=== PATIENT | male | born 1965 | race Caucasian/White ===

== ENCOUNTER 2020-02-15 20:06 | Observation (INO) | payer OTHER, SELFPAY ==
--- NOTE | ~2020-02-15 | XR_ITS ---
XR abdomen/kub 1V 02/15/2020 20:57 Indication: Right flank pain Procedure: KUB Comparison: 02/20/2015 Findings: There is a 1.5 cm right UPJ stone, measured longitudinally. There are multiple small left r enal stones. Bowel gas pattern is nonobstructive. No acute osseous abnormality. There are multiple pe lvic phleboliths. Impression: 1: Right UPJ stone measuring 1.5 cm craniocaudal. 2: Left nephrolithiasis. Right renal stones seen on CT examination are obscured by bowel content. Reviewed, dictated and finalized at location A. Impression: 1: Right UPJ stone measuring 1.5 cm craniocaudal. 2: Left nephrolithiasis. Right renal stones seen on CT examination are obscured by bowel content.
--- NOTE | ~2020-02-15 | XR_ITS ---
EXAMINATION: XR retrograde pyelo w/stent RT DATE: 02/16/2020 11:04 INDICATION: Right internal ureteral stent placement TECHNIQUE: Fluoroscopic images from a right internal ureteral stent placement are submitted for lawrence olsen 39 seconds of fluoroscopy time. 30 fluoroscopic images FINDINGS: There is a right double-J internal ureteral stent projecting in expected position, with proximal [place] loop at the level of the renal pelvis and distal loop in the pelvis within the bladder lumen. IMPRESSION: 1. Right internal ureteral stent placement. Please refer to real-time procedural findings for bryan mon. Reviewed, dictated and finalized at location A. IMPRESSION: 1. Right internal ureteral stent placement. Please refer to real-time procedu ral findings for details.
--- NOTE | ~2020-02-15 | CT_ITS ---
EXAMINATION: CT abdomen pelvis wo con DATE: 02/15/2020 20:51 INDICATION: Right flank pain. History of kidney stones. TECHNIQUE: Computed tomography (CT) of the abdomen and pelvis was performed without intravenous contr ast. The dose-length product was 262.17 mGy-cm. Automated exposure control and iterative reconstructi on technique were employed. COMPARISON: CT dated 03/19/2019 FINDINGS: Lung bases are unremarkable. No pleural or pericardial effusion. Heart size is normal. The liver, spleen, pancreas, adrenal glands are unremarkable. There is a 9 mm right UPJ stone with mo derate hydronephrosis. There are multiple nonobstructing bilateral renal stones, approximately 6 on b oth sides. There is moderate right perinephric edema. No left hydronephrosis. Nonobstructive bowel ga s pattern. No evidence for hernia. No significant vascular abnormality. No lymphadenopathy. No free a ir or free fluid. Mild lumbar spondylosis. IMPRESSION: 1. 9 mm obstructing right UPJ stone with moderate hydronephrosis and perinephric edema. 2: Nonobstructing bilateral nephrolithiasis. Reviewed, dictated and finalized at location A. IMPRESSION: 1. 9 mm obstructing right UPJ stone with moderate hydronephrosis and perinephri c edema. 2: Nonobstructing bilateral nephrolithiasis.
[2020-02-15 20:10] VITALS: BP 151/92; PULSE 77; RESP 24; TEMP 36.4; O2SAT 99
[2020-02-15 20:26] LABS: Basophils Percent Auto 0.3 % (0.2-1.2); Eosinophils Absolute Auto 0.1 K/mm3 (0-0.3); Eosinophils Percent Auto 0.7 % (0-4.4); Hematocrit 41.9 % (42.0-52.0); Hemoglobin 14.5 g/dL (14.0-18.0); Immature Granulocyte Absolute 0.03 K/mm3 (0.00-0.031); Immature Granulocyte Percent A 0.3 % (0-0.5); Lymphocytes Absolute Auto 1.91 K/mm3 (0.9-3.2); Lymphocytes Percent Auto 16.7 % (18.3-44.2); Mean Corpuscular HGB Conc 34.6 g/dl (32-36); Mean Corpuscular Hemoglobin 31.8 pg (26-34); Mean Corpuscular Volume 91.9 fl (80-100); Mean Platelet Volume 10.1 fl (7.4-10.4); Monocytes Absolute Auto 1.1 K/mm3 (0.1-0.6); Monocytes Percent Auto 9.2 % (2.6-8.5); Neutrophils Absolute Auto 8.4 K/mm3 (1.3-6.7); Neutrophils Percent Auto 72.8 % (45.5-73.1); Platelet Count Result 238 k/mm3 (150-375); Red Blood Count 4.56 M/mm3 (4.6-6.20); Red Cell Distribution Width 12.4 % (11.5-14.5); White Blood Count 11.5 K/mm3 (4.5-10.0)
--- NOTE | 2020-02-15 20:35 | ED.ABDPAIN ---
HPI - Abdominal Pain General Chief Complaint: Urogenital-Male <Jesús Boss PA-C - Last Filed: 02/15/20 21:49> Stated Complaint: right flank, frequents kidney stones. <Jesús Boss PA-C - Last Filed: 02/15/20 21:49> Time Seen by Provider: 02/15/20 20:24 <Jesús Boss PA-C - Last Filed: 02/15/20 21:49> Source: patient <Jesús Boss PA-C - Last Filed: 02/15/20 21:49> Mode of arrival: ambulatory <Jesús Boss PA-C - Last Filed: 02/15/20 21:49> Limitations: no limitations <Jesús Boss PA-C - Last Filed: 02/15/20 21:49> History of Present Illness HPI narrative: Patient is a 54-year-old male who presents to emergency department for evaluation of right flank pain that began today has been having pain off and on for the last 2 weeks patient notes history of frequent urolithiasis patient notes nausea but denies emesis patient denies any current hematuria patient is followed by urology and has not taken anything for his symptoms symptoms are constant nothing is made them better or worse <Jesús Boss PA-C - Last Filed: 02/15/20 21:49> Related Data Home Medications: Home Medications Medication Instructions Recorded Confirmed omeprazole 20 mg PO DAILY 02/15/20 02/16/20 <Jesús Boss PA-C - Last Filed: 02/15/20 21:49> Allergies/Adverse Reactions: Allergies Allergy/AdvReac Type Severity Reaction Status Date / Time No Known Allergies Allergy Verified 02/15/20 22:07 <Jesús Boss PA-C - Last Filed: 02/15/20 21:49> Review of Systems Review of Systems: All systems reviewed & are unremarkable except as noted in HPI and below <Jesús Boss PA-C - Last Filed: 02/15/20 21:49> PMFSH Past Medical History Medical History: Medical History (Updated 02/15/20 @ 21:47 by Jesús Boss PA-C) Kidney stone <Jesús Boss PA-C - Last Filed: 02/15/20 21:49> Surgical History Surgical History: Surgical History (Updated 02/15/20 @ 20:36 by Jesús Boss PA-C) H/O lithotripsy <Jesús Boss PA-C - Last Filed: 02/15/20 21:49> Family History Family History: Family History (Updated 02/15/20 @ 23:14 by Twin Askew RN) Other Unknown family medical history <Jesús Boss PA-C - Last Filed: 02/15/20 21:49> Social History Social History: Social History Smoking status: Never smoker Alcohol intake: current Substance use: never Gender identity (if verbalized by the patient): Male Sexual Orientation (if Verbalized by the Patient): Straight or Heterosexual Spiritual care concerns: No <Jesús Boss PA-C - Last Filed: 02/15/20 21:49> Exam Narrative: Exam Narrative: GENERAL: Ill-appearing, well-nourished, and in acute pain HEAD: Normocephalic, atraumatic. EYES: PERRLA and EOMI. ENT: Nares clear, no rhinorrhea or epistaxis. Mucous membranes moist. Oropharynx without tonsillar hypertrophy exudate or other lesions. NECK: Supple. No adenopathy or masses. CHEST: Clear to auscultation. No respiratory distress. No wheezes rales or rhonchi HEART: Regular rate and rhythm. No murmur heard. Normal peripheral pulses. ABDOMEN: Soft, nontender, nondistended EXTREMITIES: Normal range of motion. No edema. SKIN: Warm, dry, no rash. NEURO: No focal deficits. Alert and oriented x3. PSYCH: Normal mood and affect. <Jesús Boss PA-C - Last Filed: 02/15/20 21:49> Course Course Emergency Course: Patient given medications for pain and fluids in the emergency department will be placed in hospital with urological consult for discussion of stenting given the size of the stone. Patient was given a dose of Rocephin patient feeling better but continued to have discomfort patient without emesis <Jesús Boss PA-C - Last Filed: 02/15/20 21:49> IT SOFTWARE ENGINEER/PA Physician Supervision Attestation for Jesús Boss at 215
[2020-02-15 20:39] LABS: Blood Urea Nitrogen 23 mg/dL (9-20); Calcium 9.9 mg/dL (8.4-10.2); Carbon Dioxide 26 mmol/L (22-30); Chloride 99 mmol/L (98-107); Estimated CRCL calculation 58 ml/min; Estimated Glomerular Filt Rate 49; Glucose 116 mg/dL (75-110); Sodium 136 mmol/L (137-145)
[2020-02-15] MEDS: ONDANSETRON INJ 4 MG/2 ML VIAL IV PUSH (20:43)
[2020-02-15] MEDS: MORPHINE SULFATE 4 MG/ML INJ IV PUSH ×2 (20:44→22:05)
[2020-02-15 20:52] LABS: Add Urine Microscopic? YES; Appearance Urine Clear (Clear); Bacteria Urine Trace /hpf; Bilirubin Urine Negative (Negative); Blood Urine 2+ (Negative); Color Urine Colorless (Yellow); Glucose Urine UA Negative (Negative); Ketones Urine Negative (Negative); Leukocyte Esterase Ur Negative LEU/UL (Negative); Mucus Urine Rare /lpf; Nitrate Urine Negative (Negative); Protein Urine Negative (Negative); RBC Urine 51-75 /hpf (0-2); Specific Grav Ur 1.011 (1.001-1.035); Urobilinogen Urine Negative mg/dL (<2.0); WBC Urine 0-3 /hpf
[2020-02-15] MEDS: SODIUM CHLORIDE 0.9% IV 1,000 ML 999 ML IV CONT ×2 (21:25→21:34)
[2020-02-15 22:06] VITALS: BP 148/90; PULSE 80; RESP 18; O2SAT 98
[2020-02-15 23:00] VITALS: BP 137/87; PULSE 72; RESP 16; TEMP 36.4; O2SAT 97; BMI 26.4
[2020-02-15] MEDS: LACTATED RINGERS 1,000 ML 125 ML IV CONT (23:07)
--- NOTE | 2020-02-15 23:11 | ADMGEN ---
This patient, Salvatore Kennedy, was admitted to [facility] Surg Room 315-01. Patient/family oriented to hospital policies and general routines including ID bracelet, bed and alarms, visiting hours, pain management, procedures, bathroom and other care routines, personal items, smoking policy, room service/diet, and visiting hours. Valuables list has been completed. Information on how to activate the Rapid Response Team has been discussed. Patient/Family are encouraged to report perceived risks to care and to ask questions if they do not understand what they are told or what they should do.
[2020-02-16] MEDS: MORPHINE SULFATE 4 MG/ML INJ IV PUSH ×3 (00:42→08:37)
[2020-02-16 06:00] VITALS: BP 127/71; PULSE 56; RESP 20; TEMP 36.4; O2SAT 97
[2020-02-16] MEDS: LACTATED RINGERS 1,000 ML 125 ML IV CONT (06:24)
[2020-02-16 06:35] LABS: Basophils Percent Auto 0.3 % (0.2-1.2); Eosinophils Absolute Auto 0.1 K/mm3 (0-0.3); Eosinophils Percent Auto 0.9 % (0-4.4); Hematocrit 39.9 % (42.0-52.0); Hemoglobin 13.3 g/dL (14.0-18.0); Immature Granulocyte Absolute 0.03 K/mm3 (0.00-0.031); Immature Granulocyte Percent A 0.3 % (0-0.5); Lymphocytes Absolute Auto 1.98 K/mm3 (0.9-3.2); Lymphocytes Percent Auto 20.4 % (18.3-44.2); Mean Corpuscular HGB Conc 33.3 g/dl (32-36); Mean Corpuscular Hemoglobin 31.4 pg (26-34); Mean Corpuscular Volume 94.3 fl (80-100); Mean Platelet Volume 10.4 fl (7.4-10.4); Monocytes Absolute Auto 1.1 K/mm3 (0.1-0.6); Monocytes Percent Auto 11.3 % (2.6-8.5); Neutrophils Absolute Auto 6.5 K/mm3 (1.3-6.7); Neutrophils Percent Auto 66.8 % (45.5-73.1); Platelet Count Result 217 k/mm3 (150-375); Red Blood Count 4.23 M/mm3 (4.6-6.20); Red Cell Distribution Width 12.5 % (11.5-14.5); White Blood Count 9.7 K/mm3 (4.5-10.0)
[2020-02-16 06:43] LABS: Blood Urea Nitrogen 19 mg/dL (9-20); Calcium 8.4 mg/dL (8.4-10.2); Carbon Dioxide 27 mmol/L (22-30); Chloride 103 mmol/L (98-107); Estimated CRCL calculation 67 ml/min; Estimated Glomerular Filt Rate 58; Glucose 100 mg/dL (75-110); Potassium 4.1 mmol/L (3.4-5.0); Sodium 135 mmol/L (137-145)
[2020-02-16] MEDS: FAMOTIDINE 20 MG/2 ML VIAL IV PUSH (08:40)
--- NOTE | 2020-02-16 09:09 | WPDANESEPPF ---
Anes - Initial Pre Proc Eval Procedure: Operation Date: 02/16/20 10:00 Proposed Procedures p Cystoscopy with Right Stent Placement(Right) - Brenden Yoder MD Date/Time: 02/16/20 09:09 Surgeon: Mecca Win PA-C Pre Op Diagnosis: Urolithiasis acute kidney injury Patient Data Age: 54 Gender: M Height: 6 ft 1 in Weight: 90.8 kg Last Vital Signs Temp 36.4 C 02/16/20 06:00 Pulse 56 L 02/16/20 06:00 Resp 20 02/16/20 06:00 BP 127/71 02/16/20 06:00 Pulse Ox 97 02/16/20 06:00 Allergies Allergy/AdvReac Type Severity Reaction Status Date / Time No Known Allergies Allergy Verified 02/15/20 22:07 Home Medications Medication Instructions Recorded Confirmed Type omeprazole 20 mg PO DAILY 02/15/20 02/16/20 History Laboratory Tests 02/15/20 02/15/20 02/15/20 20:21 20:21 20:40 WBC 11.5 K/mm3 H K/mm3 (4.5-10.0) RBC 4.56 M/mm3 L M/mm3 (4.6-6.20) Hgb 14.5 g/dL g/dL (14.0-18.0) Hct 41.9 % L % (42.0-52.0) MCV 91.9 fl fl (80-100) MCH 31.8 pg pg (26-34) MCHC 34.6 g/dl g/dl (32-36) RDW 12.4 % % (11.5-14.5) Plt Count 238 k/mm3 k/mm3 (150-375) MPV 10.1 fl fl (7.4-10.4) Immature Gran % (Auto) 0.3 % % (0-0.5) Neut % (Auto) 72.8 % % (45.5-73.1) Lymph % (Auto) 16.7 % L % (18.3-44.2) Kings % (Auto) 9.2 % H % (2.6-8.5) Eos % (Auto) 0.7 % % (0-4.4) Baso % (Auto) 0.3 % % (0.2-1.2) Lymph # (Auto) 1.91 K/mm3 K/mm3 (0.9-3.2) Kings # (Auto) 1.1 K/mm3 H K/mm3 (0.1-0.6) Eos # (Auto) 0.1 K/mm3 K/mm3 (0-0.3) Baso # (Auto) 0.0 K/mm3 K/mm3 (0.0-0.1) Abs Immat Gran (auto) 0.03 K/mm3 K/mm3 (0.00-0.031) Absolute Neuts (auto) 8.4 K/mm3 H K/mm3 (1.3-6.7) Absolute Nucleated RBC 0.0 K/mm3 K/mm3 (0.0-0.012) Nucleated RBC % 0.0 % % (0.0-0.2) Sodium 136 mmol/L L mmol/L (137-145) Potassium 4.0 mmol/L mmol/L (3.4-5.0) Chloride 99 mmol/L mmol/L (98-107) Carbon Dioxide 26 mmol/L mmol/L (22-30) BUN 23 mg/dL H mg/dL (9-20) Creatinine 1.50 mg/dL H mg/dL (0.7-1.3) Estim Creat Clear Calc 58 ml/min ml/min Estimated GFR 49 L (59 - ) Glucose 116 mg/dL H mg/dL (75-110) Calcium 9.9 mg/dL mg/dL (8.4-10.2) Urine Color Colorless (Yellow) Urine Appearance Clear (Clear) Urine pH 8.0 (5.0-9.0) Ur Specific Shirley 1.011 (1.001-1.035) Urine Protein Negative mg/dL mg/dL (Negative) Urine Glucose (UA) Negative mg/dL mg/dL (Negative) Urine Ketones Negative mg/dL mg/dL (Negative) Ur Blood (Man) 2+ H (Negative) Urine Nitrate Negative (Negative) Urine Bilirubin Negative (Negative) Urine Urobilinogen Negative mg/dL mg/dL (<2.0) Leukocyte Esterase Rfl Negative BREE/UL BERE/UL (Negative) Urine RBC 51-75 /hpf H /hpf (0-2) Urine WBC 0-3 /hpf /hpf Urine Bacteria Trace /hpf /hpf Urine Mucus Rare /lpf /lpf 02/16/20 02/16/20 06:09 06:09 WBC 9.7 K/mm3 K/mm3 (4.5-10.0) RBC 4.23 M/mm3 L M/mm3 (4.6-6.20) Hgb 13.3 g/dL L g/dL (14.0-18.0) Hct 39.9 % L % (42.0-52.0) MCV 94.3 fl fl (80-100) MCH 31.4 pg pg (26-34) MCHC 33.3 g/dl g/dl (32-36) RDW 12.5 % % (11.5-14.5) Plt Count 217 k/mm3 k/mm3 (150-375) MPV 10.4 fl fl (7.4-10.4) Immature Gran % (Auto) 0.3 % % (0-0.5) Neut % (Auto) 66.8 % % (45.5-73.1) Lymph % (Auto) 20.4 % % (18.3-44.2) Kings % (Auto) 11.3 % H % (2.6-8.5) Eos % (Auto) 0.9 % % (0-4.4) Baso % (Auto) 0.3 % % (0.2-1.2) L
--- NOTE | 2020-02-16 09:10 | PC.NURSE ---
Patient to PACU at 0855 on 02-16-20.
--- NOTE | 2020-02-16 09:32 | WPDURCON ---
Assessment and Plan Assessment and plan (1) Right ureteral stone: Code(s): N20.1 - Calculus of ureter Status: Acute Assessment and Plan: This is a pleasant 54-year-old gentleman with a 15mm right proximal ureteral stone with hydronephrosis and associated pain. -patient to go to the OR today for cystoscopy and right ureteral stent insertion. The risks of procedure include but limited to infection, bleeding, pain, injury to surrounding structures inability to place stent as well as elevation anesthetic were discussed. The patient agrees. -the patient understands that the stent is a temporary device and he will need definitive stone management at a later date. We will likely proceed with a ESWL in the near future. Urology Consult Note HPI Date Seen: 02/16/20 Requesting Physician: Mecca Win PA-C Primary Care Provider: DISEASE INTERVENTION SPECIALIST PHYSICIAN Consult Narrative Narrative: Salvatore Kennedy is a 54 year old male who presented to the emergency department with right-sided flank pain. Division of the history nephrolithiasis. He was found have a large right ureteral stone. Review of Systems Constitutional: Constitutional: Reports no additional constitutional complaints Eyes: Eyes: Reports no additional eye complaints ENT: Reports Normal hearing present Cardiovascular: Cardiovascular: Reports no additional cardiovascular complaints Respiratory: Respiratory: Reports no additional respiratory complaints Gastrointestinal: Gastrointestinal: Reports no additional gastrointestinal complaints Genitourinary: Genitourinary: Reports no additional male genitourinary complaints Musculoskeletal: Musculoskeletal: Reports no additional musculoskeletal complaints Integumentary/Breasts: Skin/Breast: Reports system reviewed and no additional complaints, except as docu Neurologic: Reports system reviewed and no additional complaints, except as documented Psychiatric: Psychiatric: Reports no additional psychiatric complaints [facility] Past Medical History Medical History Kidney stone Surgical History Surgical History H/O lithotripsy Family History Family History Other Unknown family medical history Social History Social History Smoking status: Never smoker Alcohol intake: current Substance use: never Gender identity (if verbalized by the patient): Male Sexual Orientation (if Verbalized by the Patient): Straight or Heterosexual Spiritual care concerns: No Meds Home Medications and Allergies Home Medications Medication Instructions Recorded Confirmed Type omeprazole 20 mg PO DAILY 02/15/20 02/16/20 History Allergies Allergy/AdvReac Type Severity Reaction Status Date / Time No Known Allergies Allergy Verified 02/15/20 22:07 Vital Signs Vital Signs - 24 hr 02/15/20 20:10 02/15/20 22:06 02/15/20 23:00 Temperature 36.4 C 36.4 C L Pulse Rate 77 80 72 Respiratory Rate 24 H 18 16 Blood Pressure 151/92 H 148/90 H 137/87 Pulse Oximetry 99 98 97 02/16/20 06:00 Temperature 36.4 C Pulse Rate 56 L Respiratory Rate 20 Blood Pressure 127/71 Pulse Oximetry 97 Exam Const: General: no acute distress Eyes: General: appearance normal, both eyes and all related structures Resp: Effort & Inspection: normal respiratory effort Cardio: Rate: regular rate Rhythm: regular rhythm Skin: General skin exam: normal color Neuro: Speech: normal speech Extrem: General: normal to inspection Psych: Speech and movement: Normal speech and movement present Results Labs CBC & Chem 7: 02/16/20 06:09 02/16/20 06:09 Labs: Short CBC 02/15/20 02/16/20 Range/Units 20:21 06:09 WBC 11.5 H 9.7 (4.5-10.0) K/mm3 Hgb 14.5 13.3 L (14.0-18.
[2020-02-16] MEDS: LIDOCAINE HCL 2% GEL UROJET 10 ML PKG MUCOUS MEM (10:49)
[2020-02-16 11:09] VITALS: BP 114/75; PULSE 86; RESP 12; TEMP 36.6; O2SAT 99
[2020-02-16] MEDS: LACTATED RINGERS 1,000 ML 30 ML IV CONT (11:09)
[2020-02-16 11:20] VITALS: BP 111/81; PULSE 73; RESP 16; O2SAT 100
[2020-02-16 11:35] VITALS: BP 109/81; PULSE 80; RESP 15; O2SAT 98
[2020-02-16 11:49] VITALS: BP 109/77; PULSE 57; RESP 14; O2SAT 96
[2020-02-16 12:00] VITALS: BP 111/78; PULSE 63; RESP 16; O2SAT 97
--- NOTE | 2020-02-16 12:07 | PM.SD ---
Same Day Admit/Disch: HPI History of Present Illness Chief complaint: Urolithiasis acute kidney injury Narrative: Salvatore Kennedy is a 54 year old male with a history of kidney stones and GERD, presented to the emergency room with right flank pain with radiation into his right lower quadrant, groin and upper right thigh which has been intermittent over the last 2 and half weeks but more persistent since 4:30 pm prior to arrival. Patient had some slight discomfort 2 and half weeks ago to his right flank but symptoms were not very severe. Then 2 weeks ago he noticed some hematuria for 3 days but that resolved. He continued to have intermittent discomfort and finally yesterday after he was working outside in the heat hot, humidity he began feeling worsening right flank pain with associated nausea, fevers, chills and decided come to the emergency room. He took 2 Tylenol-3 with codeine he prior to arrival without any relief of his pain. Initial vitals showed, temp 97.6F, BP 151/92, HR 77, RR 24, O2 99% on RA. Initial labs showed leukocytosis with 11,500, with normal neutrophil count. Slight hyponatremia at 136, acute kidney insufficiency with a creatinine 1.5, BUN 23. Glucose 116. Urinalysis showed 2+ blood in 51-[address] abdomen pelvis showed a 9 mm obstructive right UPJ stone with moderate hydronephrosis and perinephric edema. Nonobstructing bilateral nephrolithiasis. The hospital with IV fluids, IV pain medication, NPO status and a consult to Urology for further evaluation, cystoscopy and stent placement. [facility] Past Medical History Medical History GERD (gastroesophageal reflux disease) Kidney stone Recurrent since 1993 Testicular torsion Bilateral Surgical History Surgical History H/O foot surgery Bunion removal bilaterally H/O lithotripsy x2 History of testicular surgery Testicular torsion bilaterally Family History Family History Mother Lupus Arthritis Father Diabetes mellitus Other Unknown family medical history Social History Social History Smoking status: Never smoker Alcohol intake: current Alcohol use details: Social alcohol use Substance use: never Living arrangements: with family Occupation/Education: occupation Additional occupation/education comments: He was in the and went to [place]. 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 Gender identity (if verbalized by the patient): Male Sexual Orientation (if Verbalized by the Patient): Straight or Heterosexual Spiritual care concerns: No Same Day Admit/Disch: Med Pre-admit Medications Home Medications Medication Instructions Recorded Confirmed Type omeprazole 20 mg PO DAILY 02/15/20 02/16/20 History hydrocodone-acetaminophen 1 tab PO Q6H PRN #15 tablet 02/16/20 Rx Exam Narrative: Exam Narrative: General: 54-year-old man sitting up in bed watching TV. Appears comfortable, but drowsy. In no acute distress. Skin: No jaundice or cyanosis. Good skin turgor. Neck: Full range of motion. Supple. Respiratory: Lungs are clear to auscultation bilaterally. No bony chest wall tenderness. Cardiovascular: The heart has a regular rate and rhythm without murmur. Lower extremities: No lower extremity edema. Distal pulses are easily palpated. No calf tenderness to palpation. Gastrointestinal: Slight flank tenderness on the right. No CVA tenderness to left. The abdomen is soft, nontender and nondistended with active bowel sounds. Psychiatric: Lucid and oriented. Memory intact. Neurologic: No focal deficits. Speech is clear. No facial drooping. DS: Data Data Completed and Pending Labs on day of discharge: Labs from last 24 rebecca
--- NOTE | 2020-02-16 12:56 | OP_ITS ---
DATE OF PROCEDURE: 02/16/2020 PREOPERATIVE DIAGNOSIS: Right proximal ureteral stone, 15 mm. POSTOPERATIVE DIAGNOSIS: Right proximal ureteral stone, 15 mm. PROCEDURE PERFORMED: 1. Cystoscopy. 2. Right retrograde pyelogram. 3. Right ureteral stent insertion. DESCRIPTION OF PROCEDURE: Informed consent was obtained. The patient was taken to the operating room and given preoperative IV antibiotics. He was induced anesthesia and placed in dorsal lithotomy position, prepped and draped in normal sterile fashion. We inserted a 22-Nigerian cystoscope through the urethra in the bladder. The patient has normal urothelium without mucosal abnormalities. The patient has bilateral orthotopic ureteral orifices. We cannulated the right ureteral orifice. A 5-Nigerian catheter was advanced. Retrograde pyelogram revealed moderate right hydronephrosis. We did appear to move the stone back into the renal pelvis with the retrograde pyelogram. A wire was then inserted into the ureter and into the renal pelvis and over the wire we placed a 4.8-Nigerian variable length stent with a curl in renal pelvis and curl in the bladder. The bladder was emptied, 10 cc lidocaine was instilled. The patient awakened and taken to the recovery room stable in condition. IV FLUIDS: Per anesthesia. COMPLICATIONS: None. ESTIMATED BLOOD LOSS: Minimal. FOLLOWUP: The patient will follow up for outpatient lithotripsy in the coming weeks. Iris I MT: Rosalba
[2020-02-16] MEDS: ONDANSETRON INJ 4 MG/2 ML VIAL IV PUSH (13:06)
--- NOTE | 2020-02-19 10:40 | PC.NURSE ---
Urine cx is negative.
== END 2020-02-16 16:25 | disposition home or self-care (01) ==
LOC: ANHED 22:07 → ANH3MEDSUR 22:13
PROVIDERS: Emergency Medicine Emergency Medical Services; Urology; Admitting Provider Internal Medicine; Emergency Provider Emergency Medicine; Visit Provider Family Medicine
PROC: (CPT 52352; principal; 2020-02-16 10:00)
DX: N13.2 Hydronephrosis with renal and ureteral calculous obstruction (principal); K21.9 Gastro-esophageal reflux disease without esophagitis
CPT/HCPCS: 52332; 36415; 74018; 74176; 74420; 80048; 81001; 85025; 87086; 96361; 96365; 96374; 96375; 96376; 99285; A9270; C1769; C1887; C2617; G0378; J0131; J0696; J1100; J2250; J2270; J2405; J2704; J3010; J7030; J7120; Q9966

== ENCOUNTER 2020-02-19 01:32 | Outpatient (CLI) | payer OTHER, SELFPAY ==
[2020-02-20 13:59] LABS: SARS-CoV-2 RNA PCR Negative
== END 2020-02-19 01:33 | disposition home or self-care (01) ==
LOC: ANHCOVIDDT 01:32
PROVIDERS: Visit Provider Urology
DX: Z01.812 Encounter for preprocedural laboratory examination (principal); Z11.59 Encounter for screening for other viral diseases
CPT/HCPCS: 87635; C9803; U0003

== ENCOUNTER 2020-02-21 04:05 | Day surgery (SDC) | payer OTHER, SELFPAY ==
[2020-02-17 15:51] VITALS: BMI 25.7
[2020-02-21] VITALS (8 sets, daily range): BP systolic 101–149; BP diastolic 77–92; PULSE 67–82; RESP 14–20; TEMP 36.4–36.7; O2SAT 92–100
--- NOTE | ~2020-02-21 | XR_ITS ---
XR abdomen/kub 1V 02/21/2020 07:45 Indication: Preop lithotripsy Procedure: KUB Comparison: 02/15/2020 Findings: There is a right internal ureteral stent with the proximal coil in the renal pelvis and dis maria luz coil presumably in the bladder. There is a stone adjacent to the proximal coil measuring 11 mm. T here are pelvic phleboliths. There are multiple punctate left renal stones. There is a smaller stone in the upper pole of the right kidney. Impression: 1: Bilateral nephrolithiasis, largest stone presumably in the right renal pelvis. Right internal uret eral stent in expected position. Reviewed, dictated and finalized at location B. Impression: 1: Bilateral nephrolithiasis, largest stone presumably in the right renal pelvi s. Right internal ureteral stent in expected position.
--- NOTE | 2020-02-21 08:16 | WPDANESEPPF ---
Anes - Initial Pre Proc Eval Procedure: Operation Date: 02/21/20 09:30 Proposed Procedures p Right Extracorporeal Shock Wave Lithotripsy - Tim Herrera MD Date/Time: 02/21/20 08:16 Surgeon: Tim Herrera MD Pre Op Diagnosis: Right Uteral Stone N20.1 Patient Data Age: 54 Gender: M Height: 6 ft 1 in Weight: 88.45 kg Allergies Allergy/AdvReac Type Severity Reaction Status Date / Time No Known Allergies Allergy Verified 02/17/20 15:51 Home Medications Medication Instructions Recorded Confirmed Type omeprazole 20 mg PO DAILY 02/15/20 02/17/20 History alprazolam 0.5 mg PO HS PRN 02/17/20 02/17/20 History hydrocodone-acetaminophen [[place]] 1 tablet PO Q4H PRN #15 tablet 02/17/20 02/17/20 Rx Patient hx anesthesia problems: none Family hx anesthesia problems: none PMFSH Past Medical History Medical History GERD (gastroesophageal reflux disease) Kidney stone Recurrent since 1993 Testicular torsion Bilateral Surgical History Surgical History H/O foot surgery Bunion removal bilaterally H/O lithotripsy x2 History of testicular surgery Testicular torsion bilaterally Family History Family History Mother Lupus Arthritis Father Diabetes mellitus Other Unknown family medical history Social History Social History Smoking status: Never smoker Alcohol intake: current Drinks per week: 7 Substance use: never Additional occupation/education comments: He was in the and went to [place]. 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 Gender identity (if verbalized by the patient): Male Spiritual care concerns: No Anes - Eval Final PreProcedure Day of Procedure 02/21/20 08:16 Patient weight: normal Heart: regular rate and rhythm Lungs: clear to auscultation Airway: Mallampati scale class II Neurological: alert and oriented Last oral intake: >/= 8 hours ASA classification: II Emergent: no Anesthetic plan: proceed Anesthesia type and monitoring: general LMA and standard monitoring Informed Consent: The patient's anesthetic plan and its attendant risks and benefits were discussed with the patient/family/POA. Questions were solicited and answers provided to the satisfaction of the patient/family/POA.
--- NOTE | 2020-02-21 08:18 | WPDHPUPDATE1 ---
History and Physical Update Update Date/Time: 02/21/20 08:18 History and Physical has been reviewed, including an updated exam of the patient. There are NO changes in the patient's condition. Risks, benefits, and alternatives have been discussed and questions answered. Patient agrees to proceed with procedure.
[2020-02-21] MEDS: LACTATED RINGERS 1,000 ML 30 ML IV CONT ×2 (08:30→09:52)
[2020-02-21] MEDS: FAMOTIDINE 20 MG/2 ML VIAL IV PUSH (08:40)
[2020-02-21 08:45] LABS: INR 1.1; Prothrombin Time 13.7 Seconds (11.1-14.7)
[2020-02-21 08:46] LABS: Partial Thromboplastin Time 27.6 SECONDS (22.3-36.8)
[2020-02-21] MEDS: ceFAZolin 2 GM/D5W 50 ML 2 GM/50 ML BAG IVPB (09:10)
[2020-02-21] MEDS: KETOROLAC 30 MG/ML VIAL (*BKC) IV PUSH (09:43)
--- NOTE | 2020-02-21 09:54 | PM.OP ---
Procedure Note - Brief Procedure Note - Brief Date of procedure: 02/21/20 Pre-op diagnosis: Right Uteral Stone N20.1 Right renal calculus 1 cm Post-op diagnosis: same Procedure performed: ESWL right renal calculus Description of procedure: Patient was taken to the operative suite and correctly identified. Once anesthesia was obtained stone was localized in both planes. Two thousand five hundred shocks were given to the stone. There appeared to be fragmentation of it. He tolerated procedure well was taken recovery room stable condition. He is given the standard post lithotripsy instructions and will follow up in 10-14 days with a KUB. The develops any problems he will call us so we can deal with appropriately. Anesthesia: GLMA Surgeon: Tim Herrera MD Drains: No Packing: No Pathology: none sent Complications: No immediate complications Condition: stable Disposition: PACU
== END 2020-02-21 11:30 | disposition home or self-care (01) ==
PROVIDERS: Visit Provider Urology
PROC: (CPT 50590; principal; 2020-02-21 09:30)
DX: N20.1 Calculus of ureter (principal); K21.9 Gastro-esophageal reflux disease without esophagitis
CPT/HCPCS: 50590; 36415; 74018; 85610; 85730; 87635; A9270; C9803; J0690; J1100; J1885; J2250; J2405; J2704; J3010; J7120; U0003

== ENCOUNTER 2020-03-11 12:00 | Outpatient (CLI) | payer OTHER, SELFPAY ==
--- NOTE | ~2020-03-11 | XR_ITS ---
EXAMINATION: XR abdomen/kub 1V INDICATION: Right ureteral stone TECHNIQUE: Supine views of the abdomen were obtained on 2 radiographs. COMPARISON: 02/21/2020 FINDINGS: A right internal ureteral stent is in expected position. There is been interval treatment o f the previously described stone in the right renal pelvis with a 5 mm stone fragment seen adjacent t o the proximal aspect of the stent projecting lateral to the right L3 transverse process. No addition al stones or stone fragments are identified. There are multiple pelvic phleboliths. Punctate left nep hrolithiasis measures up to 3 mm in the upper pole. The bowel gas pattern is normal. The visualized l claritza bases are clear. IMPRESSION: 1. Interval right-sided lithotripsy with 5 mm stone fragment seen adjacent to the proximal stent. Reviewed, dictated and finalized at location [facility]. IMPRESSION: 1. Interval right-sided lithotripsy with 5 mm stone fragment seen adjacent to t he proximal stent.
== END 2020-03-11 12:01 | disposition home or self-care (01) ==
LOC: ANHIMG 12:02
PROVIDERS: Visit Provider Urology
DX: N20.1 Calculus of ureter (principal)
CPT/HCPCS: 74018

== ENCOUNTER 2020-03-20 12:21 | Outpatient (CLI) | payer OTHER, SELFPAY ==
--- NOTE | ~2020-03-20 | XR_ITS ---
XR abdomen/kub 1V DATE: 03/20/2020 12:47 INDICATION: Right ureteral stone TECHNIQUE: AP projection, 2 views COMPARISON: 03/11/2020 KUB 02/15/2020 CT abdomen pelvis FINDINGS: Again noted is an approximately 4-5 mm calcified stone overlying the proximal right ureter at the upper L3 level. Right internal urinary stent is unchanged in position. Multiple left renal calcified calculi. Fecal and gas. Shadows from the bowel superimposes the kidney interval comminuted evaluation for calc ified stones. Bilateral calcified pelvic phleboliths. The psoas shadows are intact. No visceromegaly is evident. There is no evidence of bowel obstruction. There is a fairly prominent amount of fecal material in the right and transverse colon. IMPRESSION: 4-5 and calcified calculus of proximal right ureter; right internal urinary stent remains Left nephrolithiasis Reviewed, dictated and finalized at [facility]. Reviewed, dictated and finalized at location [facility].
== END 2020-03-20 12:22 | disposition home or self-care (01) ==
LOC: ANHIMG 12:28
PROVIDERS: Visit Provider Urology
DX: N20.2 Calculus of kidney with calculus of ureter (principal)
CPT/HCPCS: 74018

== ENCOUNTER 2020-03-28 00:33 | Outpatient (CLI) | payer OTHER, SELFPAY ==
[2020-03-28 19:30] LABS: SARS-CoV-2 RNA PCR Negative
== END 2020-03-28 00:34 | disposition home or self-care (01) ==
LOC: ANHCOVIDDT 00:34
PROVIDERS: Visit Provider Urology
DX: Z01.812 Encounter for preprocedural laboratory examination (principal); Z20.828 Contact with and (suspected) exposure to other viral communicable diseases
CPT/HCPCS: 87635; C9803; U0003

== ENCOUNTER 2020-03-31 01:30 | Day surgery (SDC) | payer OTHER, SELFPAY ==
[2020-03-27 15:14] VITALS: BMI 25.7
[2020-03-31] VITALS (8 sets, daily range): BP systolic 119–167; BP diastolic 74–98; PULSE 62–75; RESP 10–15; TEMP 36.3–37.1; O2SAT 98–100
--- NOTE | ~2020-03-31 | XR_ITS ---
EXAMINATION: XR retrograde pyelo w/stent RT DATE: 03/31/2020 12:53 INDICATION: Right ureteral stone TECHNIQUE: 5 fluoroscopic spot images of the right abdomen and pelvis were obtained during procedure performed by Dr. Herrera. Radiologist was not present for the imaging or procedure. The amount of fl uoroscopy time used during this procedure was 0.3 minutes. COMPARISON: 03/20/2020 FINDINGS: Initial tenterer images demonstrate no interval change in position of a right internal ureteral stent wi th loops formed at the region of the right renal pelvis and in the bladder. Again seen is a small sto ne alongside the stent at the proximal most right ureter. Multiple phleboliths in the pelvis. Subsequ ent images demonstrate removal of the stent and cannulation of the right ureter. Retrograde contrast opacification of the right renal collecting system menstruates mild hydronephrosis. The stone at the proximal ureters are not visualized on the imaging obtained following stent removal and has either be en extracted or refluxed into the right renal collecting system. IMPRESSION: 1. Fluoroscopy utilized during urologic procedure including right ureteral stent removal. The stone p reviously seen in the proximal right ureter is not visualized on the final images and has likely been either extracted or refluxed into the renal collecting system. Correlate with procedure note for fur ther detail. Reviewed, dictated and finalized at location A. IMPRESSION: 1. Fluoroscopy utilized during urologic procedure including right ureteral sten t removal. The stone previously seen in the proximal right ureter is not visual ized on the final images and has likely been either extracted or refluxed into the renal collecting system. Correlate with procedure note for further detail.
[2020-03-31] MEDS: LACTATED RINGERS 1,000 ML 30 ML IV CONT ×2 (10:26→12:51)
--- NOTE | 2020-03-31 10:57 | WPDANESEPPF ---
Anes - Initial Pre Proc Eval Procedure: Operation Date: 03/31/20 12:00 Proposed Procedures p Cystoscopy, Right Ureteroscopy, Right Retrograde Pyelogram, Right Stone Extraction, Right Stent Exchange - Tim Herrera MD s Possible Holmium Laser Procedure - Tim Herrera MD Date/Time: 03/31/20 10:57 Surgeon: Tim Herrera MD Pre Op Diagnosis: Right Kidney Stone Patient Data Age: 54 Gender: M Height: 6 ft 1 in Weight: 88.1 kg Last Vital Signs Temp 98.7 F 03/31/20 10:06 Pulse 75 03/31/20 10:06 Resp 12 03/31/20 10:06 BP 119/83 03/31/20 10:06 Pulse Ox 98 03/31/20 10:06 Allergies Allergy/AdvReac Type Severity Reaction Status Date / Time No Known Allergies Allergy Verified 03/31/20 10:02 Home Medications Medication Instructions Recorded Confirmed Type omeprazole 20 mg PO DAILY 02/15/20 03/31/20 History alprazolam 0.5 mg PO HS PRN 02/17/20 03/31/20 History Laboratory Tests 03/31/20 09:54 Urine Color Pending Urine Appearance Pending Urine pH Pending Ur Specific [place] Pending Urine Protein Pending Urine Glucose (UA) Pending Urine Ketones Pending Ur Blood (Man) Pending Urine Nitrate Pending Urine Bilirubin Pending Urine Urobilinogen Pending Ur Leukocyte Esterase Pending Patient hx anesthesia problems: none Family hx anesthesia problems: none PMFSH Social History Social History Smoking status: Never smoker Alcohol intake: current Drinks per week: 7 Substance use: never Additional occupation/education comments: He was in the and went to [place]. 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 Gender identity (if verbalized by the patient): Male Spiritual care concerns: No Anes - Eval Final PreProcedure Day of Procedure 03/31/20 10:57 Patient weight: normal Heart: regular rate and rhythm Lungs: clear to auscultation Airway: Mallampati scale class II Neurological: alert and oriented Last oral intake: >/= 8 hours ASA classification: II Emergent: no Anesthetic plan: proceed Anesthesia type and monitoring: general LMA and standard monitoring Informed Consent: The patient's anesthetic plan and its attendant risks and benefits were discussed with the patient/family/POA. Questions were solicited and answers provided to the satisfaction of the patient/family/POA.
[2020-03-31 11:28] LABS: Add Urine Microscopic? YES; Appearance Urine Clear (Clear); Bilirubin Urine Negative (Negative); Blood Urine 2+ (Negative); Color Urine Yellow (Yellow); Glucose Urine UA Negative (Negative); Ketones Urine Negative (Negative); Leukocyte Esterase Ur 1+ LEU/UL (NEGATIVE); Mucus Urine Rare /lpf; Nitrate Urine Negative (Negative); Protein Urine 1+ mg/dL (Negative); RBC Urine >75 /hpf (0-2); Specific Grav Ur 1.012 (1.001-1.035); Urobilinogen Urine Negative mg/dL (<2.0)
--- NOTE | 2020-03-31 11:51 | WPDHPUPDATE1 ---
History and Physical Update Update Date/Time: 03/31/20 11:51 History and Physical has been reviewed, including an updated exam of the patient. There are NO changes in the patient's condition. Risks, benefits, and alternatives have been discussed and questions answered. Patient agrees to proceed with procedure. Plan for cystoscopy, right retrograde, right ureteroscopy with stone extraction possible stent exchange.
[2020-03-31] MEDS: ceFAZolin 2 GM/D5W 50 ML 2 GM/50 ML BAG IVPB (12:17)
[2020-03-31] MEDS: LIDOCAINE HCL 2% GEL UROJET 10 ML PKG MUCOUS MEM (12:31)
--- NOTE | 2020-03-31 12:49 | PM.PROC ---
Procedure Note - Detailed Date of procedure: 03/31/20 Pre-op diagnosis: Right Kidney Stone Right proximal ureteral calculus 5 mm Post-op diagnosis: same Procedure performed: cystoscopy, right retrograde, right ureteroscopy with stone extraction, right ureteral stent exchange 4.8 Maldivian contour Description of procedure: patient is taken to the operative suite and correctly identified. Once anesthesia was obtained he was placed in dorsal lithotomy position and prepped and draped usual sterile fashion. Twenty-two Maldivian scope was inserted the bladder. The stent was grasped brought out the meatus. Placed a wire through it and then we placed a ureteral access sheath in. Mini flexible ureteral scope was placed the stone was visualized we were able to retrieve it in 1 piece. Reinspection revealed no residual stones. Pyelogram was then performed to confirm placement of the stent in the renal pelvis. 4.8 [place]divian contour stent was then placed with the proximal end coiled in the renal pelvis and the distal in the bladder. Bladder is drained. 2% viscous lidocaine was inserted urethra patient is taken recovery stable condition. He will follow up in a week's time for stent removal. Anesthesia: GLMA Surgeon: Tim Herrera MD Drains: Yes Packing: No Pathology: yes Complications: No immediate complications Condition: stable Disposition: PACU
== END 2020-03-31 14:30 | disposition home or self-care (01) ==
PROVIDERS: Visit Provider Urology
PROC: (CPT 52352; principal; 2020-03-31 12:00)
DX: N20.1 Calculus of ureter (principal); Z87.442 Personal history of urinary calculi
CPT/HCPCS: 52352; 52332; 74420; 81001; 82365; 88300; A9270; C1769; C1894; C2617; J0690; J1100; J2250; J2405; J2704; J3010; J7120; Q9966